=== PATIENT | male | born 1955 | race Caucasian/White ===

== ENCOUNTER → 2017-04-12 | Outpatient (CLI) | payer OTHER ==
[~2017-04-12] MED LIST: ACETAMINOPHEN PO; ASPIRIN PO; COMBIVENT INH14.7 GM INH; COZAAR100 MG PO; HCTZ PO; LOPRESSOR PO; LORTAB 7.5-5001 TAB PO; OMEPRAZOLE20 M2 PO; PRAVACHOL PO; SIMVASTATIN40 MG PO; TENORMIN50 MG PO; VERAPAMIL ER240 MG PO; VICODIN 5/500 T1 TAB PO; ZANTAC150 MG PO
--- NOTE | ~2017-04-12 | US37 ---
[facility] A Service of [facility] RADIOLOGY TEXT RESULTS PATIENT: MARY WOLF LOCATION: CNIV : 59 UNIT #: [id number] AGE: [address]: Joselito Singh MD SEX: M ORDER DR: [id number] [facility] [address] [place], [place] [address] [id number] O MR#: [id number] Acc #: [id number] NAME: MARY WOLF. : 1955 SEX: M STUDY DATE/TIME: 04/12/2017 15:32 UNIT: CNIV ROOM: STUDY DESCRIPTION: US Carotid W/Doppler Bilateral Attending Physician: Joselito Singh M.D. Referring Physician: Joselito Singh M.D. Ordering Physician: Joselito Singh M.D. Primary Care Physician: Olivia Egan M.D. MEDICAL IMAGING REPORT This report is preliminary unless electronic signature is present EXAM Bilateral carotid duplex, 04/12/17 HISTORY Bilateral carotid artery disease FINDINGS Duplex imaging of the carotid arteries was performed. The right common carotid artery is patent. Soft plaque is seen in the right internal and external carotid arteries. Velocity in the right common carotid is 108, internal is 138 proximally, 143 mid portion, and 139 distally. External is 94 cm/sec. Right IC/CC ratio is 1.2. On the left side, the common carotid artery is patent. Soft plaque is seen in the left internal and external carotid arteries which is mild. Velocity in the left common carotid artery is 108, internal is 112 proximally, and 131 mid portion and 115 distally. External is 155 cm/sec. Left IC/CCA is 1.2. Antegrade flow is seen in the right and left vertebral arteries. IMPRESSION 1. Increased velocity with 50%-69% stenosis is seen in the right internal carotid artery. The B-mode imaging does not reveal significant plaque, however. 2. Increased velocities in the range of 50%-69% stenosis is seen in the left mid internal carotid artery. The plaque once again on B-mode imaging does not appear to be significant. 3. Antegrade flow is seen in the right and left vertebral arteries. [facility]. [facility] A Service of [facility] RADIOLOGY TEXT RESULTS PATIENT: MARY WOLF LOCATION: CNIV : 59 UNIT #: [id number] AGE: [address]: Joselito Singh MD SEX: M ORDER DR: Dictated by... Joselito Singh M.D. THIS IS AN ELECTRONICALLY VERIFIED REPORT Joselito Singh M.D. at 04/13/2017 4:08 PM Manish TD: 04/12/2017 20:50 JOB #: [id number] MEDICAL IMAGING REPORT Page 1 of 1 COPY
== END | disposition home or self-care (01) ==
LOC: CNIV 02-15 15:30
DX: I77.9 Disorder of arteries and arterioles, unspecified (principal); I65.23 Occlusion and stenosis of bilateral carotid arteries
CPT/HCPCS: 93880